=== PATIENT | female | born 1960 ===

== ENCOUNTER 2018-07-21 10:57 | Inpatient (IN) ==
[2018-07-21] MEDS ORDERED: FUROSEMIDE 100 MG/10 ML VIAL IV STA (14:10)
[2018-07-21 14:24] LABS: Apearance,Urine Slightly Hazy (Clear); Bacteria,Urine Occasional /HPF (Few); Bilirubin,Urine Negative (Negative); Blood, Urine Large mg/dL (Negative); Glucose,Urine (UA) Negative (Negative); Hyaline Casts,Urine 16 /LPF (0-3); Ketones,Urine Negative (Negative); Mucus,Urine Few /LPF (Occasional); Nitrite,Urine Negative (Negative); Protein,Urine >=500 MG/DL; RBC,Urine 3 /HPF (0-4); Squamous Epithelial Cell,Urine Occasional /HPF (0-10); Urine Color Amber (Yellow); Urine Specific Gravity 1.019 (1.001-1.035); WBC,Urine 12 /HPF (0-6)
[2018-07-21] MEDS ORDERED: FUROSEMIDE 40 MG/4 ML VIAL ONE (14:29)
[2018-07-21 14:56] LABS: Basophils # 0.1 10*3/uL (0.0-0.2); Basophils % 1.3 % (0.0-0.8); Eosinophils # 0.1 10*3/uL (0.0-0.87); Eosinophils % 2.8 % (0.00-10.9); Hematocrit 41.2 VOL% (35.7-47.0); Hemoglobin 12.3 GM/DL (12.0-16.0); Immature Granulocytes % 0.3 %; Immature Granulocytes Absolute 0.01 #; Lymphocytes # 1.6 10*3/uL (1.4-4.0); Lymphocytes % 39.8 % (21.3-54.2); Mean Corpuscular HGB Conc 29.9 GM/DL (32-36); Mean Corpuscular Hemoglobin 27 PG (27-34); Mean Corpuscular Volume 89.2 FL (87-102); Mean Platelet Volume 10.4 FL (9.6-12.0); Monocytes # 0.4 10*3/uL (0.11-0.8); Monocytes % 9.5 % (1.7-12.7); Neutrophils # 1.9 10*3/uL (1.4-7.4); Neutrophils % 46.3 % (38.7-73.9); Platelet Count 282 T/CUMM (130-400); Red Blood Count 4.62 MC/CUMM (3.8-5.5); Red Cell Distribution Width 18.6 % (9.3-17.3)
[2018-07-21 15:14] LABS: Albumin 3.2 G/DL (3.4-5.0); Bilirubin,Total 0.6 MG/DL (0.2-1.0); Calcium 8.6 MG/DL (8.5-10.1); Potassium 3.9 MMOL/L (3.5-5.1); Total Protein 6.7 G/DL (6.4-8.3)
[2018-07-21] MEDS ORDERED: ONDANSETRON 4 MG/2 ML VIAL IV PRN (16:54)
[2018-07-21] MEDS ORDERED: GLUCAGON 1 MG VIAL IM PRN ×2 (16:54)
[2018-07-21] MEDS ORDERED: MAGNESIUM SULF RIDER 2 GM in PREMIX 1 EACH IV PRN (16:54)
[2018-07-21] MEDS ORDERED: DEXTROSE 50% 25 GM/50 ML VIAL IV PRN ×2 (16:54)
[2018-07-21] MEDS ORDERED: ACETAMINOPHEN 325 MG TABLET PO PRN (16:54)
[2018-07-21] MEDS ORDERED: ZALEPLON 5 MG CAPSULE PO PRN (16:54)
[2018-07-21] MEDS ORDERED: MAGNESIUM SULF RIDER 4 GM in PREMIX 1 EACH IV PRN (16:54)
[2018-07-21] MEDS ORDERED: LOSARTAN 50 MG TABLET PO ONE (21:00)
[2018-07-21] MEDS ORDERED: FERROUS SULFATE 325 MG TABLET PO ONE (21:00)
[2018-07-21] MEDS: ENOXAPARIN 40 MG/0.4 ML SYRINGE SUBCUT SCH (21:31)
[2018-07-21] MEDS: INSULIN REGULAR 100 UNIT/ML SUBCUT SCH (21:31)
[2018-07-22 04:58] LABS: Bilirubin,Total 0.7 MG/DL (0.2-1.0); Calcium 8.4 MG/DL (8.5-10.1); Potassium 3.6 MMOL/L (3.5-5.1); Total Protein 6.2 G/DL (6.4-8.3)
[2018-07-22] MEDS: INSULIN REGULAR 100 UNIT/ML SUBCUT SCH ×4 (08:24→21:34)
[2018-07-22] MEDS ORDERED: metFORMIN 500 MG TABLET PO SCH (08:30)
[2018-07-22] MEDS: ASPIRIN CHEW 81 MG TABLET PO SCH (08:42)
[2018-07-22] MEDS: FUROSEMIDE 40 MG/4 ML VIAL IV SCH ×2 (08:45→17:05)
[2018-07-22 10:30] LABS: ABG Base Excess 5.8 MMOL/L (-2.5-2.5); ABG HCO3 29.5 MMOL/L (20-26); ABG Oxygen Saturation 92.5 % (95-100); ABG PCO2 52.7 MM HG (35-48); ABG PH 7.394 (7.35-7.45); ABG PO2 70.1 MM HG (80-95); ABG TCO2 28.4 MMOL/L (23-27)
[2018-07-22] MEDS: MAGNESIUM OXIDE 400 MG TABLET PO SCH ×2 (12:14→21:34)
[2018-07-22] MEDS: SPIRONOLACTONE 25 MG TABLET PO SCH (12:14)
[2018-07-22] MEDS: POTASSIUM CHLORIDE 20 MEQ TABLET PO SCH (12:14)
[2018-07-22] MEDS: ENOXAPARIN 40 MG/0.4 ML SYRINGE SUBCUT SCH (18:49)
[2018-07-23 05:12] LABS: Basophils % 0.9 % (0.0-0.8); Eosinophils # 0.1 10*3/uL (0.0-0.87); Eosinophils % 3.6 % (0.00-10.9); Hematocrit 38.7 VOL% (35.7-47.0); Hemoglobin 11.7 GM/DL (12.0-16.0); Immature Granulocytes % 0.3 %; Immature Granulocytes Absolute 0.01 #; Lymphocytes # 1.2 10*3/uL (1.4-4.0); Lymphocytes % 36.9 % (21.3-54.2); Mean Corpuscular HGB Conc 30.2 GM/DL (32-36); Mean Corpuscular Hemoglobin 27 PG (27-34); Mean Platelet Volume 10.1 FL (9.6-12.0); Monocytes # 0.3 10*3/uL (0.11-0.8); Monocytes % 8.7 % (1.7-12.7); Neutrophils # 1.7 10*3/uL (1.4-7.4); Neutrophils % 49.6 % (38.7-73.9); Platelet Count 253 T/CUMM (130-400); Red Blood Count 4.35 MC/CUMM (3.8-5.5); Red Cell Distribution Width 18.4 % (9.3-17.3); White Blood Count 3.3 T/CUMM (4-12)
[2018-07-23 05:51] LABS: Albumin 3.1 G/DL (3.4-5.0); Bilirubin,Total 0.5 MG/DL (0.2-1.0); Calcium 7.8 MG/DL (8.5-10.1); Osmolality,Calculated 280.3 MOS/KG (273-304); Potassium 3.7 MMOL/L (3.5-5.1); Thyroid Stimulating Hormone 23.9 uIU/ml (0.358-3.74); Total Protein 6.5 G/DL (6.4-8.3)
[2018-07-23 07:14] LABS: Calcium 8.3 MG/DL (8.5-10.1); Osmolality,Calculated 282.1 MOS/KG (273-304); Potassium 3.7 MMOL/L (3.5-5.1)
[2018-07-23] MEDS ORDERED: HEPARIN/NACL 0.9% 2 UNITS/ML 1,000 ML IV ONE (08:29)
[2018-07-23] MEDS ORDERED: POTASSIUM CHLORIDE RIDER 10 MEQ in PREMIX 1 EACH IV PRN (08:35)
[2018-07-23] MEDS ORDERED: DIAZEPAM 5 MG TABLET PO ONE (08:35)
[2018-07-23] MEDS ORDERED: diphenhydrAMINE CAP 25 MG CAPSULE PO ONE (08:35)
[2018-07-23] MEDS ORDERED: MAGNESIUM SULF RIDER 2 GM in PREMIX 1 EACH IV PRN (08:35)
[2018-07-23] MEDS ORDERED: DIAZEPAM 5 MG TABLET ONE (08:41)
[2018-07-23] MEDS ORDERED: diphenhydrAMINE CAP 50 MG CAPSULE ONE (08:41)
[2018-07-23] MEDS: FUROSEMIDE 40 MG/4 ML VIAL IV SCH ×2 (08:50→18:13)
[2018-07-23] MEDS: MAGNESIUM OXIDE 400 MG TABLET PO SCH ×2 (08:50→20:10)
[2018-07-23] MEDS: ASPIRIN CHEW 81 MG TABLET PO SCH (08:51)
[2018-07-23] MEDS: POTASSIUM CHLORIDE 20 MEQ TABLET PO SCH (08:51)
[2018-07-23] MEDS ORDERED: SODIUM CHLORIDE 0.45% 1,000 ML IV SCH (09:00)
[2018-07-23] MEDS ORDERED: NITROGLYCERIN DRIP 50 MG/250 ML BOTTLE IV ONE (09:02)
[2018-07-23] MEDS ORDERED: VERAPAMIL 5 MG/2 ML VIAL ONE (09:03)
[2018-07-23] MEDS ORDERED: MIDAZOLAM 2 MG/2 ML VIAL ONE (09:15)
[2018-07-23] MEDS ORDERED: fentaNYL 100 MCG/2 ML VIAL ONE (09:15)
[2018-07-23] MEDS: INSULIN REGULAR 100 UNIT/ML SUBCUT SCH ×3 (13:15→20:31)
[2018-07-23] MEDS: ENOXAPARIN 40 MG/0.4 ML SYRINGE SUBCUT SCH (18:16)
[2018-07-23] MEDS: SPIRONOLACTONE 25 MG TABLET PO SCH (20:02)
[2018-07-24 05:47] LABS: Basophils % 1.1 % (0.0-0.8); Eosinophils # 0.1 10*3/uL (0.0-0.87); Eosinophils % 3.3 % (0.00-10.9); Hematocrit 38.8 VOL% (35.7-47.0); Hemoglobin 11.6 GM/DL (12.0-16.0); Immature Granulocytes % 0.3 %; Immature Granulocytes Absolute 0.01 #; Lymphocytes # 1.2 10*3/uL (1.4-4.0); Lymphocytes % 32.4 % (21.3-54.2); Mean Corpuscular HGB Conc 29.9 GM/DL (32-36); Mean Corpuscular Hemoglobin 27 PG (27-34); Mean Corpuscular Volume 89.6 FL (87-102); Mean Platelet Volume 10.1 FL (9.6-12.0); Monocytes # 0.4 10*3/uL (0.11-0.8); Neutrophils # 1.9 10*3/uL (1.4-7.4); Neutrophils % 51.9 % (38.7-73.9); Platelet Count 257 T/CUMM (130-400); Red Blood Count 4.33 MC/CUMM (3.8-5.5); Red Cell Distribution Width 18.1 % (9.3-17.3); White Blood Count 3.6 T/CUMM (4-12)
[2018-07-24 06:04] LABS: Calcium 8.5 MG/DL (8.5-10.1); Osmolality,Calculated 280.3 MOS/KG (273-304)
[2018-07-24 06:10] LABS: Calcium 8.6 MG/DL (8.5-10.1); Free T4 (Free Thyroxine) 0.56 NG/DL (0.76-1.46); Osmolality,Calculated 281.3 MOS/KG (273-304); Potassium 4.2 MMOL/L (3.5-5.1)
[2018-07-24] MEDS: POTASSIUM CHLORIDE 20 MEQ TABLET PO SCH (08:27)
[2018-07-24] MEDS: SPIRONOLACTONE 25 MG TABLET PO SCH (08:27)
[2018-07-24] MEDS: MAGNESIUM OXIDE 400 MG TABLET PO SCH (08:27)
[2018-07-24] MEDS: ASPIRIN CHEW 81 MG TABLET PO SCH (08:28)
[2018-07-24] MEDS: FUROSEMIDE 40 MG/4 ML VIAL IV SCH (08:29)
[2018-07-24] MEDS: INSULIN REGULAR 100 UNIT/ML SUBCUT SCH ×2 (10:00→12:11)
[2018-07-24 11:36] VITALS: BP 124/71
[2018-07-24] MEDS ORDERED: SACUBITRIL/VALSARTAN 49-51 MG TABLET PO SCH (21:00)
== END 2018-07-24 14:20 | disposition home or self-care (01) | DRG 287 ==
LOC: N.ED 10:57 → N.EDINP 16:24 → SUATTDRO 16:24 → N.TELEN 19:48
PROVIDERS: ADMIT Internal Medicine; ATTEND Internal Medicine
PROC: CLCCHCL (ICD-10-PCS; 2018-07-23 09:45)